=== PATIENT | male | born 1970 | race Caucasian/White ===

== ENCOUNTER 2016-09-07 10:32 | Emergency (ER) | payer MEDICAID, OTHER ==
[~2016-09-07] VITALS: Ht 193 cm; Wt 80.0 kg
[~2016-09-07 10:32] MED LIST: IBUP800T23 PO; METH750T2 PO; PERC5TAB12 PO; XANA0.5T PO
[2016-09-07 10:33] VITALS: BP 129/92; PULSE 76; RESP 18; TEMP 98.2; O2SAT 98
--- NOTE | 2016-09-07 10:47 | PD ---
HPI Chief Complaint: Pain: Acute or Chronic Time Seen by Provider: 10:38 Travel History International Travel<30 days: No Contact w/Intl Traveler<30days: No Traveled to known affect area: No History of Present Illness HPI 46-year-old male presents the emergency department with 3 day history of right-sided sciatica symptoms. Patient has history of sciatica in the past with positive MRIs with herniated disc in the past. 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 Patient denies numbness, tingling, or urinary symptoms. He does however continue to have pain worse with sitting, and with cough. It is improved with standing and walking. His pain is a 8/10 which she took 2 atenolol over 10 with certain movements. He has not been trying any [id number] medicine as been trying heat without improvement. He is allergic to penicillin. PFSH Past Medical History ?: Not Social History Alcohol Use: Yes Tobacco Use: Yes Substance Use: No Allergies-Medications (Allergen,Severity, Reaction): Coded Allergies: Penicillin (Verified Allergy, Unknown, 05/16/15) Reported Meds & Prescriptions Reported Meds & Active Scripts Active Robaxin (Methocarbamol) 750 Mg Tab 750 Mg PO QID Ibuprofen 800 Mg Tab 800 Mg PO Q8HR PRN Reported Xanax 0.5 mg (Alprazolam) Alprazolam 0.5 mg Tab 1 Tab PO TID PRN Percocet 5-325 mg (Oxycodone/Acetaminophen) Oxycodone 5/325 Acetaminophen Tab 1 Tab PO TID PRN Review of Systems Except as stated in HPI: all other systems reviewed are Neg General / Constitutional: No: Fever Eyes: No: Visual changes HENT: No: Headaches Cardiovascular: No: Chest Pain or Discomfort Respiratory: No: Shortness of Breath Gastrointestinal: No: Abdominal Pain Genitourinary: No: Dysuria Musculoskeletal: Positive: Arthralgias, Limited ROM, Pain Skin: No Rash Neurologic: No: Weakness Psychiatric: No: Depression Endocrine: No: Polydipsia Hematologic/Lymphatic: No: Easy Bruising Physical Exam Narrative GENERAL: Patient appears in moderate distress. SKIN: Warm and dry. Normal color. Normal turgor. No rash. HEAD: Atraumatic. Normocephalic. EYES: Pupils equal and round. No scleral icterus. No injection or drainage. ENT: No nasal bleeding or discharge. Mucous membranes pink and moist. Pharynx is clear. NECK: Trachea midline. Supple and nontender. CARDIOVASCULAR: Regular rate and rhythm. RESPIRATORY: No accessory muscle use. Clear to auscultation. Breath sounds equal bilaterally. GASTROINTESTINAL: Abdomen soft, non-tender, nondistended. Hepatic and splenic margins not palpable. MUSCULOSKELETAL: Extremities without clubbing, cyanosis, or edema. No obvious deformities. Patient has tenderness with palpation along the right lower lumbar spine extending into the right sciatic notch of the sacrum. Patient has positive straight leg raise pain on the right at 30, with positive contralateral pain straight leg raise on the left. Patient has normal dorsiflexion and plantar flexion. Deep tendon reflexes are 2+ and equal bilaterally. NEUROLOGICAL: Awake and alert. No obvious cranial nerve deficits. Motor grossly within normal limits. Five out of 5 muscle strength in the arms and legs. Normal speech. PSYCHIATRIC: Appropriate mood and affect; insight and judgment normal. Data Data Last Documented VS Vital Signs Date Time Temp Pulse Resp B/P Pulse Ox O2 Delivery O2 Flow Rate FiO2 09/07/16 10:33 98.2 76 18 129/92 98 MDM Medical Decision Making Medical Screen Exam Complete: Yes Emergency Medical Condition: Yes Medical Record Reviewed: Yes Differential Diagnosis Acute low back pain. Radiculopathy. Sciatica. Narrative Course Patient is medically stable at time of exam. Radiographic imaging is not felt warranted based on his history and physical. Patient is given Toradol 60 mg IM as well as 60 mg prednisone by mouth. Patient will be continued on prednisone 20 mg twice a day 7 days. Patient is also given Flexeril 10 mg 3 times a day when necessary muscle spasm. #30. Patient is also given tramadol 50 mg one every 6 hours when necessary pain #20. Patient is encouraged to walk frequently, and do gentle stretching as discussed. Patient follow with his primary care physician or return to emergency Department with worsening symptoms as discussed. Diagnosis Primary Impression: Lumbago with sciatica, right side Referrals: Primary Care Physician Patient Instructions: General Instructions, Lower Back Exercises (ED), Sciatica (ED) Additional Instructions: Radiographic imaging is not felt warranted based on his history and physical. Patient is given Toradol 60 mg IM as well as 60 mg prednisone by mouth. Patient will be continued on prednisone 20 mg twice a day 7 days. Patient is also given Flexeril 10 mg 3 times a day when necessary muscle spasm. #30. Patient is also given tramadol 50 mg one every 6 hours when necessary pain #20. Patient is encouraged to walk frequently, and do gentle stretching as discussed. Patient follow with his primary care physician or return to emergency Department with worsening symptoms as discussed. Med/Other Pt SpecificInfo: Prescription(s) given Disposition: 01 DISCHARGE HOME Condition: Stable Marcus Daly Sep 07, 2016 10:47
[2016-09-07] MEDS ORDERED: TRAM50TA PO (10:55)
[2016-09-07] MEDS ORDERED: PRED20 PO (10:55)
[2016-09-07] MEDS ORDERED: CYCL1TAB29 PO (10:55)
[2016-09-07] MEDS ORDERED: KETOROLAC TROMETHAMINE 60 MG/2 ML (IM) VIAL IM ONE (11:00)
[2016-09-07] MEDS ORDERED: predniSONE 20 MG TAB PO ONE (11:00)
== END 2016-09-07 11:15 | disposition home or self-care (01) ==
LOC: NEPK 10:32
DX: M54.41 Lumbago with sciatica, right side (principal); Z88.0 Allergy status to penicillin; Z72.0 Tobacco use
CPT/HCPCS: 96372; 99284; J1885; J7512

== ENCOUNTER 2016-11-19 14:49 | Emergency (ER) | payer MEDICAID ==
[~2016-11-19] VITALS: Ht 193 cm; Wt 77.5 kg
[~2016-11-19 14:49] MED LIST changes: +CYCL1TAB29 PO; +PRED20 PO; +TRAM50TA PO
[2016-11-19 14:51] VITALS: BP 123/79; PULSE 85; RESP 20; TEMP 99; O2SAT 97
--- NOTE | 2016-11-19 15:00 | PD ---
Physical Exam Time Seen by Provider: 14:57 Narrative 46yo M sent by Dr. Faulkner, pain management doctor, after MRI's of back obtained. MRI's done last saturday and results received today. Says he has spinal cord damage. Ambulatory in triage w/ cane. Denies IVD use or cancer. Patient seen in triage. VS reviewed. Awaiting bed placement. Data Data Last Documented VS Vital Signs Date Time Temp Pulse Resp B/P Pulse Ox O2 Delivery O2 Flow Rate FiO2 11/19/16 14:51 99.0 85 20 123/79 97 Room Air MDM Supervised Visit with TAMIKA: Marie Holloway Nov 19, 2016 14:59
[2016-11-19 15:47] VITALS: BP 142/84; PULSE 72; RESP 17; O2SAT 99
--- NOTE | 2016-11-19 15:51 | PD ---
HPI . acute on chronic back pain Chief Complaint: Back/ Neck Pain or Injury Time Seen by Provider: 15:51 Travel History International Travel<30 days: No Contact w/Intl Traveler<30days: No Traveled to known affect area: No History of Present Illness HPI 46-year-old male with history of chronic back pain here with complaints of back pain radiating into his right leg. Patient has history of back pain and has been in the emergency department for this before. 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 No compression fracture or subluxation. Incidental vertebral body hemangioma versus lipoma at T12. Follow-up as warranted. Patient says he called his house painting instructor was told to come straight to the emergency department as he had uncontrollable pain. Patient says he did reach out to Dr. Veloz and was told that it will take several days for them to review his MRI, and he is here in the emergency department hoping we can expedite his care. Has no bowel or bladder dysfunction. He denies any saddle anesthesia. He has no other complaints. PFSH Social History Alcohol Use: Yes Tobacco Use: Yes Substance Use: No Allergies-Medications (Allergen,Severity, Reaction): Coded Allergies: Penicillin (Verified Allergy, Unknown, 11/19/16) Reported Meds & Prescriptions Reported Meds & Active Scripts Active Reported Alprazolam 0.5 Mg Tab 0.5 Mg PO Q4H PRN Hydrocodone-Acetaminophen 10-300 Tab 1 Tab PO Q4H PRN Review of Systems General / Constitutional: No: Fever Eyes: No: Visual changes HENT: No: Headaches Cardiovascular: No: Chest Pain or Discomfort Respiratory: No: Shortness of Breath Gastrointestinal: No: Abdominal Pain Genitourinary: No: Dysuria Musculoskeletal: Positive: Pain (back pain ) Skin: No Rash Neurologic: No: Weakness Psychiatric: No: Depression Endocrine: No: Polydipsia Hematologic/Lymphatic: No: Easy Bruising Physical Exam Narrative GENERAL: AAO x 3, no acute distress, Well-nourished, well-developed patient. SKIN: Warm and dry. No visible rashes or bruising. HEAD: Normocephalic and atraumatic. EYES: No scleral icterus. No injection or drainage. EOM intact, PERRLA ENT: No nasal drainage noted. Mucous membranes pink. Airway patent. NECK: Supple, trachea midline. No JVD. CARDIOVASCULAR: Regular rate and rhythm without murmurs, gallops, or rubs. RESPIRATORY: Breath sounds equal bilaterally. No accessory muscle use. No rhonchi or rales. GASTROINTESTINAL: Abdomen soft, non-tender, nondistended. EXTREMITIES: No cyanosis or edema. tenderness with palpation to right sided gluteus. Right leg SLR + BACK: No obvious deformity. No CVA tenderness. NEURO: CN II-12 intact, filler in strength normal b/l, UE and LE 5/5, no focal deficits PSYCH: AAO x 3, normal affect. Data Data Last Documented VS Vital Signs Date Time Temp Pulse Resp B/P Pulse Ox O2 Delivery O2 Flow Rate FiO2 11/19/16 15:47 72 17 142/84 99 11/19/16 14:51 99.0 Room Air Orders Ketorolac Inj (Toradol Inj) (11/19/16 16:15) MDM Medical Decision Making Medical Screen Exam Complete: Yes Emergency Medical Condition: Yes Medical Record Reviewed: Yes Differential Diagnosis acute on chronic back pain, sciatica, lumbar radiculopathy, less likely cauda equina Narrative Course 46-year-old male here with complaints of back pain on the right side. Patient is ambulatory. He has no evidence of cauda equina. I advised him that unfortunately there is no emergent surgical indication on his MRI. I explained to him that he will need to follow-up as an outpatient with the neurosurgeons. I will provide him with a shot of Toradol here in the emergency department. Patient in agreement. He was hoping that we could somehow schedule him a consult here in the emergency department. I have explained to him that this not how the ED works. Diagnosis Primary Impression: Lumbago with sciatica, right side Patient Instructions: General Instructions Additional Instructions: Follow up with neurosurgery as we discussed. Disposition: 01 DISCHARGE HOME Condition: Stable Kirstin Young Nov 19, 2016 15:51
[2016-11-19] MEDS ORDERED: ALPR0.5T3 PO (15:59)
[2016-11-19] MEDS ORDERED: HYDR-2374 PO (15:59)
[2016-11-19] MEDS ORDERED: KETOROLAC TROMETHAMINE 60 MG/2 ML (IM) VIAL IM ONE (16:15)
== END 2016-11-19 16:39 | disposition home or self-care (01) ==
LOC: NEPD 14:49
DX: M54.41 Lumbago with sciatica, right side (principal); Z72.0 Tobacco use; Z87.39 Personal history of other diseases of the musculoskeletal system and connective tissue
CPT/HCPCS: 96374; 99284; J1885